=== PATIENT | male | born 1990 | race American Indian/Alaskan Native ===

== ENCOUNTER 2020-07-24 08:11 | Emergency (ER) | payer OTHER ==
[2020-07-24 08:16] VITALS: BP 154/93
[2020-07-24] MEDS ORDERED: BUTALB/ACETAMINOPHEN/CAFFEINE TAB PO STA (08:17)
[2020-07-24] MEDS ORDERED: IBUPROFEN 800 MG TAB PO ONE (08:18)
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
--- NOTE | 2020-07-24 09:01 | Cat Scan Report ---
CT head/brain wo con INDICATION: headache and nausea after head injury. TECHNIQUE: Routine CT head without contrast. All CT scans at this location are performed using CT dos e reduction for ALARA by means of automated exposure control. COMPARISON: None. FINDINGS: BRAIN / INTRACRANIAL CONTENTS: No acute hemorrhage, mass effect, midline shift, or hydrocephalus. No appreciable acute large territorial or lacunar infarct. No chronic infarct or focal atrophy. Normal b rain volume and ventricular/sulcal size for age. No extra-axial blood or fluid collection. ORBITS: No significant abnormality of visualized orbits. SINUSES / MASTOIDS: No significant abnormality of visualized sinuses and mastoid air cells. ADDITIONAL FINDINGS: No significant extra calvarial soft tissue injury or calvarial fracture. IMPRESSION: 1. No acute intracranial abnormality. Signer Name: Tay Roman MD Signed: 07/24/2020 8:56 AM Workstation Name: [id number]
[2020-07-24] MEDS ORDERED: SODIUM CHLORIDE 0.9% 1000 ML 1,000 ML IV ONE (09:41)
[2020-07-24] MEDS ORDERED: dexAMETHasone 20 MG/5 ML VIAL IV ONE (09:41)
[2020-07-24] MEDS ORDERED: diphenhydrAMINE 50 MG/ML VIAL IV ONE (09:41)
[2020-07-24] MEDS ORDERED: METOCLOPRAMIDE 10 MG/2 ML INJ IV ONE (09:41)
[2020-07-24] MEDS ORDERED: KETOROLAC 30 MG/1 ML INJ IV ONE (09:41)
== END 2020-07-24 11:48 | disposition home or self-care (01) ==
LOC: ED 08:11
DX: S06.0X0A Concussion without loss of consciousness, initial encounter (principal); G44.209 Tension-type headache, unspecified, not intractable; Z79.899 Other long term (current) drug therapy; V49.49XA Driver injured in collision with other motor vehicles in traffic accident, initial encounter; Y93.89 Activity, other specified; Y92.410 Unspecified street and highway as the place of occurrence of the external cause; Y99.8 Other external cause status
CPT/HCPCS: 70450; 96361; 96374; 96375; 99283; J1100; J1200; J1885; J2765; J7030